=== PATIENT | female | born 2000 | race African-American/Black ===

== ENCOUNTER 2020-02-04 14:59 | Emergency (ER) | payer OTHER, SELFPAY ==
[2020-02-04 15:04] VITALS: BP 110/71; PULSE 70; RESP 16; TEMP 36.4; O2SAT 100
[2020-02-04 15:39] LABS: Add Urine Microscopic? YES; Appearance Urine Clear (Clear); Bacteria Urine Trace /hpf; Bilirubin Urine Negative (Negative); Blood Urine 3+ (Negative); Color Urine Yellow (Yellow); Glucose Urine UA Negative (Negative); Ketones Urine Negative (Negative); Leukocyte Esterase Ur Negative LEU/UL (Negative); Mucus Urine Rare /lpf; Nitrate Urine Negative (Negative); Protein Urine Negative (Negative); Specific Grav Ur 1.016 (1.001-1.035); Squamous Epithelial Cell Urine Occasional /hpf (Few); WBC Urine 0-3 /hpf
--- NOTE | 2020-02-04 16:10 | ED.GENADULT ---
HPI - General Adult General Chief complaint: Vaginal Bleeding Stated complaint: vaginal bleeding Time Seen by Provider: 02/04/20 15:04 Source: patient Mode of arrival: ambulatory Limitations: no limitations History of Present Illness HPI narrative: Patient presents with chief complaint of pelvic cramping yesterday and noticing vaginal bleeding today. Patient states she has been bleeding for approximately 2 hours and has been able to keep on the same pad without it being over filled. Patient denies noting large clots. Patient states she is 2 weeks early for her menstrual cycle so she became concerned. Patient denies fever, chills, dizziness, weakness, lethargy. Patient denies any other symptoms or concerns. Patient is not on control. Patient denies vaginal discharge, urinary symptoms. Related Data Allergies Allergy/AdvReac Type Severity Reaction Status Date / Time No Known Allergies Allergy Unverified 07/17/17 00:22 Review of Systems Review of Systems: Narrative: CONSTITUTIONAL: Denies fever, chills, or sweats. EYES: Denies visual changes, redness, or discharge. ENT: Denies rhinorrhea, congestion, sore throat, or otalgia. CARDIOVASCULAR: Denies chest pain, palpitations, or edema. RESPIRATORY: Denies cough or dyspnea. GASTROINTESTINAL: Denies abdominal pain, nausea, vomiting, or diarrhea. GENITOURINARY: Reports vaginal bleeding denies vaginal discharge dysuria or hematuria. SKIN: Denies rash or itching. MUSCULOSKELETAL: Denies back pain, joint pain, or myalgia. NEUROLOGIC: Denies headache, numbness, dizziness, or weakness. PSYCHIATRIC: Denies anxiety or depression. Exam Narrative: Exam Narrative: GENERAL: Well-appearing, well-nourished, and in no acute distress. HEAD: Normocephalic, atraumatic. EYES: PERRLA and EOMI. ENT: Nares clear, no rhinorrhea or epistaxis. Mucous membranes moist. Oropharynx without tonsillar hypertrophy exudate or other lesions. Bilateral TMs pearly gardner nonbulging NECK: Supple. No adenopathy or masses. CHEST: Clear to auscultation. No respiratory distress. No wheezes rales or rhonchi HEART: Regular rate and rhythm. No murmur heard. Normal peripheral pulses. ABDOMEN: Soft, nontender, nondistended, normal active bowel sounds.Not tender with palpation over ovaries. EXTREMITIES: Normal range of motion. No edema. SKIN: Warm, dry, no rash. NEURO: No focal deficits. Alert and oriented x3. PSYCH: Normal mood and affect. Course Vital Signs Vital signs: Vital Signs Temperature 97.5 F L 02/04/20 15:04 Pulse Rate 70 02/04/20 15:04 Respiratory Rate 16 02/04/20 15:04 Blood Pressure 110/71 02/04/20 15:04 Pulse Oximetry 100 02/04/20 15:04 Temperature 97.5 F L 02/04/20 15:04 Pulse Rate 70 02/04/20 15:04 Respiratory Rate 16 02/04/20 15:04 Blood Pressure 110/71 02/04/20 15:04 Pulse Oximetry 100 02/04/20 15:04 Medical Decision Making MDM Narrative Medical decision making narrative: Patients vitals are stable. She does not have lethargy, weakness, pain. She is resting comfortable. She declines pelvic exam at this time. Patient has had on the last pad for hours. She has been instructed to take naproxen for cramps. She denies vaginal discharge or std like symptoms. She is instructed to follow up with OBGYN. She would like female OBGYN. Vital Signs Vital Signs: Vital Signs Temperature 97.5 F L 02/04/20 15:04 Pulse Rate 70 02/04/20 15:04 Respiratory Rate 16 02/04/20 15:04 Blood Pressure 110/71 02/04/20 15:04 Pulse Oximetry 100 02/04/20 15:04 Temperature 97.5 F L 02/04/20 15:04 Pulse Rate 70 02/04/20 15:04 Respiratory Rate 16 02/04/20 15:04 Blood Pressure 110/71 02/04/20 15:04 Pulse Oximetry 100 02/04/20 15:04 Lab Data Labs: Lab Results 02/04/20 Range/Units 15:28 Urine Color Yellow (Yellow) Urine Appearance Clear (Clear) Urine pH 6.0 (5.0-9.0) Ur Specific [place] 1.016 (1.001-1.035) Urine Protein Neg
[2020-02-04 16:27] VITALS: BP 114/70; PULSE 64; RESP 12; O2SAT 99
== END 2020-02-04 16:24 | disposition home or self-care (01) ==
PROVIDERS: Physician Assistant; Emergency Provider Family Medicine
DX: N93.9 Abnormal uterine and vaginal bleeding, unspecified (principal)
CPT/HCPCS: 81001; 81025; 99283

== ENCOUNTER 2020-02-12 11:00 | Outpatient (CLI) | payer OTHER, SELFPAY ==
[2020-02-12 11:42] LABS: Hematocrit 38.4 % (37.0-47.0); Hemoglobin 12.9 g/dL (12.0-15.0); Mean Corpuscular HGB Conc 33.6 g/dl (32-36); Mean Corpuscular Hemoglobin 29.7 pg (26-34); Mean Corpuscular Volume 88.3 fl (80-100); Mean Platelet Volume 9.2 fl (7.4-10.4); Platelet Count Result 294 k/mm3 (150-375); Red Blood Count 4.35 M/mm3 (4.2-5.4); Red Cell Distribution Width 12.3 % (11.5-14.5); White Blood Count 4.7 K/mm3 (4.5-10.0)
[2020-02-12 12:32] LABS: HIV 1/2 Ab P24 Ag Result Negative (Negative)
[2020-02-12 13:15] LABS: Rubella IgG Antibody 8.2 IU/ML
[2020-02-12 13:17] LABS: Hepatitis C Virus Antibody Negative (Negative)
[2020-02-15 12:30] LABS: Rapid Plasma Reagin Non-Reactive (NonReactive)
[2020-02-16 18:05] LABS: Hepatitis Be Antigen Nonreactive
== END 2020-02-12 11:01 | disposition home or self-care (01) ==
LOC: ANHLAB 11:01
PROVIDERS: Visit Provider Obstetrics & Gynecology
DX: N92.1 Excessive and frequent menstruation with irregular cycle (principal); Z11.8 Encounter for screening for other infectious and parasitic diseases; Z11.3 Encounter for screening for infections with a predominantly sexual mode of transmission
CPT/HCPCS: 36415; 85027; 86592; 86703; 86762; 86803; 87350; G0432

== ENCOUNTER 2021-05-16 17:16 | Emergency (ER) | payer OTHER, SELFPAY ==
[2021-05-16 17:18] VITALS: BP 121/74; PULSE 78; RESP 22; TEMP 37.3; O2SAT 98
[2021-05-16 18:11] VITALS: BP 118/72; PULSE 78; RESP 18; TEMP 36.7; O2SAT 99
--- NOTE | 2021-05-16 18:11 | ED.GENADULT ---
HPI - General Adult General Chief complaint: Unspecified Stated complaint: wants to know how far along she is in her pregnanc Time Seen by Provider: 05/16/21 18:11 Source: patient Mode of arrival: ambulatory Limitations: no limitations History of Present Illness HPI narrative: Patient is a 21-year-old G1, P0 presenting to the emergency department after she had a positive test at home today. Patient denies any current abdominal pain. No ripping or tearing sensation to the flank. Denies vaginal bleeding. Denies dysuria or hematuria. Denies fever, chills, nausea or vomiting. Patient states she wants to know how far along she is in her . She denies any other acute complaint. This was an unintentional . Patient states that her last menstrual period was 4 weeks ago. 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 Related Data Allergies Allergy/AdvReac Type Severity Reaction Status Date / Time No Known Allergies Allergy Verified 08/19/20 15:07 Review of Systems Review of Systems: CONSTITUTIONAL: Denies fever CARDIOVASCULAR: Denies chest pain RESPIRATORY: Denies cough or dyspnea. GASTROINTESTINAL: Denies abdominal pain SKIN: Denies rash MUSCULOSKELETAL: Denies back pain NEUROLOGIC: Denies headache [facility] Past Medical History Medical History Asthma Family History Family History Father Hypertension Grandparent Ovarian cancer Social History Social History Smoking status: Never smoker Alcohol intake: current Drinks per week: 2 Substance use: never Exam Narrative: GENERAL: Awake, alert, conversant HEAD: Normocephalic, atraumatic. EYES: PERRLA and EOMI. ENT: Nares clear, no rhinorrhea or epistaxis. Mucous membranes moist. NECK: Supple. CHEST: No respiratory distress, breathing even and non labored HEART: Regular rate, sinus rhythm ABDOMEN:Non distended, non tender, no flank tenderness EXTREMITIES: Normal range of motion. No edema. SKIN: Warm, dry, no rash. NEURO:No focal deficits. Alert and oriented x3 Course Vital Signs Vital signs: Vital Signs Temperature 37.3 C 05/16/21 17:18 Pulse Rate 78 05/16/21 17:18 Respiratory Rate 22 H 05/16/21 17:18 Blood Pressure 121/74 05/16/21 17:18 Pulse Oximetry 98 05/16/21 17:18 Temperature 36.7 C 05/16/21 18:11 Pulse Rate 78 05/16/21 18:11 Respiratory Rate 18 05/16/21 18:11 Blood Pressure 118/72 05/16/21 18:11 Pulse Oximetry 99 05/16/21 18:11 Medical Decision Making MDM Narrative Medical decision making narrative: Patient presented to the emergency department for evaluation of positive test, inquiring how far along she would be. Patient denies any vaginal bleeding, pelvic pain, back pain. No dysuria or hematuria. Vital signs are quite stable. Utilized bedside ultrasound, unable to appreciate any heart rate, movement, likely because when comparing dates, patient is approximately 3 to 4 weeks along only. Will obtain beta-hCG quantitative as patient has no signs or symptoms, no bleeding to be concerning for ectopic, no symptoms of pyelonephritis. B hCG 270. Patient with early , this is too early to have any diagnostic ultrasound. She will have to have repeat beta-hCG within the next 48 hours. Patient without signs or symptoms of ectopic. No other infectious type symptoms. She was then discharged home. Differential Diagnosis Differential Diagnosis: , UTI, ectopic , pyelonephritis Vital Signs Vital Signs: Vital Signs Temperature 37.3 C 05/16/21 17:18 Pulse Rate 78 05/16/21 17:18 Respiratory Rate 22 H 05/16/21 17:18 Blood Pressure 121/74 05/16/21 17:18 Pulse Oximetry 98 05/16/21 17:18 Temperature 36.7 C 05/16/21 18:11 Pulse Rate 78 05/16/21 18:11 Respiratory Rate 18 05/16/21 18:11 Blood
== END 2021-05-16 19:26 | disposition home or self-care (01) ==
PROVIDERS: Emergency Provider Emergency Medicine
DX: Z32.01 Encounter for pregnancy test, result positive (principal); Z3A.01 Less than 8 weeks gestation of pregnancy; O99.511 Diseases of the respiratory system complicating pregnancy, first trimester; J45.909 Unspecified asthma, uncomplicated
CPT/HCPCS: 36415; 84702; 99283

== ENCOUNTER 2021-06-27 11:12 | Outpatient (CLI) | payer OTHER, SELFPAY ==
[2021-06-28 00:13] LABS: HIV 1/2 Ab P24 Ag Result Negative (Negative)
[2021-06-28 06:28] LABS: Rapid Plasma Reagin Non-Reactive (NonReactive)
[2021-06-30 07:40] LABS: Progesterone 4.5 ng/mL (***)
[2021-06-30 16:24] LABS: Hepatitis Be Antigen Nonreactive
== END 2021-06-27 11:13 | disposition home or self-care (01) ==
PROVIDERS: Visit Provider Obstetrics & Gynecology
DX: O20.0 Threatened abortion (principal); Z11.3 Encounter for screening for infections with a predominantly sexual mode of transmission; Z3A.00 Weeks of gestation of pregnancy not specified
CPT/HCPCS: 36415; 84144; 84702; 86592; 86695; 86696; 86703; 86850; 86900; 86901; 87350; G0432

== ENCOUNTER 2021-06-28 10:55 | Outpatient (CLI) | payer OTHER, SELFPAY ==
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
== END 2021-06-28 10:56 | disposition home or self-care (01) ==
LOC: ANHIMG 10:57
PROVIDERS: Visit Provider Obstetrics & Gynecology
DX: O20.0 Threatened abortion (principal); Z3A.00 Weeks of gestation of pregnancy not specified
CPT/HCPCS: 76801; 76817

== ENCOUNTER 2021-11-21 20:29 | Emergency (ER) | payer OTHER, SELFPAY ==
--- NOTE | 2021-11-21 21:21 | PC.NURSE ---
per Diamante CANTRELL (charge), MEDS activated at 2120, spoke to Joanie Gomez RN will arrive in aprox 30-40 mins call for help advocate notified at 2125
[2021-11-21 22:01] VITALS: BP 116/81; PULSE 76; RESP 18; TEMP 36.7; O2SAT 100
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
[2021-11-22] MEDS: ONDANSETRON HCL ODT 4 MG TABLET PO (01:19)
[2021-11-22] MEDS: metroNIDAZOLE 250 MG TABLET 2000 MG PO (01:20)
[2021-11-22] MEDS: LIDOCAINE HCL 1% LOCAL INJ 20 ML VIAL 2.1 ML XX (01:23)
[2021-11-22] MEDS: DOXYCYCLINE HYCLATE 100 MG TABLET PO (01:24)
[2021-11-22] MEDS: cefTRIAXone 1 GM VIAL 0.5 GM IM (01:24)
[2021-11-22] MEDS: AZITHROMYCIN 250 MG TABLET 1000 MG PO (01:24)
[2021-11-22] MEDS: ULIPRISTAL ACETATE 30 MG TABLET PO (01:25)
[2021-11-22] MEDS: RALTEGRAVIR 400 MG TABLET PO (01:25)
[2021-11-22] MEDS: EMTRICITABINE-TENOFOVIR 100 MG-150 MG TABLET 2 TAB PO (01:25)
[2021-11-22 01:47] LABS: Basophils Percent Auto 0.4 % (0.2-1.2); Eosinophils Absolute Auto 0.2 K/mm3 (0-0.3); Eosinophils Percent Auto 2.5 % (0-4.4); Hematocrit 36.1 % (37.0-47.0); Hemoglobin 11.1 g/dL (12.0-15.0); Immature Granulocyte Absolute 0.01 K/mm3 (0.00-0.031); Immature Granulocyte Percent A 0.1 % (0-0.5); Lymphocytes Absolute Auto 1.73 K/mm3 (0.9-3.2); Mean Corpuscular HGB Conc 30.7 g/dl (32-36); Mean Corpuscular Hemoglobin 24.3 pg (26-34); Mean Corpuscular Volume 79.2 fl (80-100); Mean Platelet Volume 11.2 fl (7.4-10.4); Monocytes Absolute Auto 0.4 K/mm3 (0.1-0.6); Monocytes Percent Auto 5.6 % (2.6-8.5); Neutrophils Absolute Auto 4.6 K/mm3 (1.3-6.7); Neutrophils Percent Auto 66.4 % (45.5-73.1); Platelet Count Result 241 k/mm3 (150-375); Red Blood Count 4.56 M/mm3 (4.2-5.4); White Blood Count 6.9 K/mm3 (4.5-10.0)
[2021-11-22 02:05] LABS: Alanine Aminotransferase 17 U/L (6-35); Albumin Level 4.7 g/dL (3.5-5.1); Alkaline Phosphatase 85 U/L (38-126); Anion Gap 11 mmol/L (8-16); Aspartate Amino Transferase 26 U/L (14-36); Bilirubin,Total 0.4 mg/dL (0.2-1.3); Blood Urea Nitrogen 12 mg/dL (7-17); Calcium 9.5 mg/dL (8.4-10.2); Carbon Dioxide 22 mmol/L (22-30); Chloride 101 mmol/L (98-107); Estimated CRCL calculation 121 ml/min; Estimated Glomerular Filt Rate > 60; Glucose 93 mg/dL (65-110); Potassium 3.7 mmol/L (3.4-5.0); Sodium 134 mmol/L (137-145)
[2021-11-22 02:26] VITALS: BP 118/67; PULSE 77; RESP 20; O2SAT 100
[2021-11-22 02:28] LABS: Hepatitis B Surface Antigen Negative (Negative)
[2021-11-22 02:34] LABS: HAV RESULT Negative (Negative); Hepatitis B Core IgM Result Negative (Negative)
[2021-11-22 02:45] LABS: Hepatitis C Virus Antibody Negative (Negative)
[2021-11-22 02:46] LABS: HIV 1/2 Ab P24 Ag Result Negative (Negative)
[2021-11-22 07:43] LABS: Rapid Plasma Reagin Non-Reactive (NonReactive)
== END 2021-11-22 03:24 | disposition home or self-care (01) ==
PROVIDERS: Emergency Provider Nurse Practitioner Family; PCP Nurse Practitioner Family
DX: T74.21XA Adult sexual abuse, confirmed, initial encounter (principal); J45.909 Unspecified asthma, uncomplicated; F17.290 Nicotine dependence, other tobacco product, uncomplicated
CPT/HCPCS: 36415; 80053; 80074; 81025; 85025; 85055; 86592; 86703; 87491; 87591; 87808; 96372; 99285; A9270; G0432; J0696